=== PATIENT | female | born 1980 | race Caucasian/White ===

== ENCOUNTER 2022-03-23 04:28 | Day surgery (SDC) | payer BC, OTHER ==
[2022-03-22 09:26] VITALS: BMI 21.2
[2022-03-23 11:29] VITALS: TEMP 98
[2022-03-23 12:02] VITALS: BP 115/74; PULSE 59
== END 2022-03-23 12:35 | disposition home or self-care (01) ==
LOC: JASU-ENDO 04:28
PROVIDERS: ATTEND Internal Medicine Gastroenterology
PROC: 0DB78ZX Excision of Stomach, Pylorus, Via Natural or Artificial Opening Endoscopic, Diagnostic (ICD-10-PCS; 2022-03-23)
PROC: 0DB58ZX Excision of Esophagus, Via Natural or Artificial Opening Endoscopic, Diagnostic (ICD-10-PCS; principal; 2022-03-23 11:30)
DX: K29.50 Unspecified chronic gastritis without bleeding (principal); D13.0 Benign neoplasm of esophagus
CPT/HCPCS: 81025; 88305-TC; 88312-TC; 88342-TC